=== PATIENT | male | born 1980 | race Caucasian/White ===

== ENCOUNTER 2018-05-11 11:05 | Outpatient (CLI) | payer BC ==
--- NOTE | 2018-05-11 12:18 | ULT ---
ABDOMINAL ULTRASOUND: Date: 05/11/18 INDICATION: Abnormal liver function tests. FINDINGS: Images of the gallbladder reveal echogenic foci adherent to gallbladder wall. There are 3 or 4 of the se foci seen, largest measuring 7.0 mm. No evidence of posterior shadowing. Gallbladder polyps are wright spected. Gallbladder wall appears normal. Common duct is normal caliber, measured at 2-3 mm. Liver is echogenic consistent with diffuse fatty infiltration. The spleen appears unremarkable. 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 The aorta and IVC are poorly imaged due to overlying bowel gas. The pancreas is also obscured. Both kidneys measure 10.5-11.0 cm in length. No hydronephrosis. There is an echogenic focus seen in t he right mid collecting structures of the right kidney which may represent a calculus. Kidneys are ot herwise unremarkable. IMPRESSION: 1. Echogenic liver consistent with hepatic steatosis. 2. Several echogenic foci adherent to the gallbladder wall, suspicious for gallbladder polyps. No de finite evidence of gallstones. Recommend follow-up gallbladder ultrasound in 6 months to confirm stab ility of these apparent soft tissue polyps. 3. Possible calculus in the upper collecting structures of right kidney. POS: [facility]
== END 2018-05-11 11:06 | disposition home or self-care (01) ==
LOC: SCSULT 11:05
PROVIDERS: ATTEND Family Medicine
DX: R74.8 Abnormal levels of other serum enzymes (principal); K76.89 Other specified diseases of liver; K82.9 Disease of gallbladder, unspecified
CPT/HCPCS: 76700

== ENCOUNTER 2018-11-20 07:03 | Outpatient (CLI) | payer BC ==
--- NOTE | 2018-11-20 10:19 | ULT ---
ABDOMINAL ULTRASOUND: HISTORY: Cholesterolosis of the gallbladder. COMPARISON: 05/11/2018 FINDINGS: The liver again demonstrates increased echogenicity, most compatible with diffuse fatty infiltration with areas of what appear to be fatty sparing. No hepatic lesion is identified. Again noted are nonmobile echogenic foci seen along the gallbladder wall, the majority measuring less than 4 mm, but there is a larger nonmobile echogenic focus adherent to the wall, measuring 8 mm. The re is no gallbladder wall thickening or pericholecystic fluid identified. The common duct measures 2 mm in diameter, which is within normal limits. There is a shadowing echogenic focus seen within the mid portion of the right kidney, difficult to ad equately measure but likely represents a nonobstructing calculus. Each kidney measures 10.1 cm in kinza gth. The left kidney has a normal sonographic appearance. The pancreas is obscured by bowel gas. The visualized portions of the IVC, abdominal aorta and spleen demonstrate a normal sonographic appea malathi. IMPRESSION: 1. Several echogenic foci again seen, adherent to the gallbladder wall, and again likely related to g allbladder polyps. The largest gallbladder polyp measures approximately 8 mm. A gastroenterology cons ultation is suggested given the size of this polyp. No gallbladder calculus is seen. 2. Fatty infiltration of the liver. 3. Nonobstructing right renal calculus. POS: C
== END 2018-11-20 07:04 | disposition home or self-care (01) ==
LOC: SCSULT 07:03
PROVIDERS: ATTEND Family Medicine
DX: K82.4 Cholesterolosis of gallbladder (principal); N20.0 Calculus of kidney; K76.0 Fatty (change of) liver, not elsewhere classified
CPT/HCPCS: 76700

== ENCOUNTER 2019-02-14 07:37 | Outpatient (CLI) | payer BC ==
--- NOTE | 2019-02-14 11:25 | NM ---
Radionucleotide hepatobiliary scan and gallbladder ejection fraction HISTORY: Right upper quadrant pain. Cholesterolosis gallbladder. FINDINGS: Early images show physiologic uptake of radiotracer throughout the hepatic parenchyma. Gall bladder is first imaged at 10 minutes. Uptake is evident within the small bowel at 9 minutes. After administration of fatty meal, there is progressive excretion of radiotracer from the gallbladder to t he small bowel. Ejection fraction calculated at 82%. IMPRESSION: Normal exam. Normal gallbladder ejection fraction.
== END 2019-02-14 07:38 | disposition home or self-care (01) ==
LOC: NM 07:37
PROVIDERS: ATTEND Family Medicine
DX: K82.4 Cholesterolosis of gallbladder (principal)
CPT/HCPCS: 78227; A9537